=== PATIENT | male | born 1990 | race Hispanic/Latino ===

== ENCOUNTER 2016-09-09 09:41 | Emergency (ER) | payer OTHER ==
[2016-09-09 10:01] VITALS: BP 120/80
--- NOTE | 2016-09-09 10:25 | RADIOLOGY REPORT ---
EXAMINATION: XR KNEE, LEFT CLINICAL INFORMATION: Knee pain COMPARISON: None. TECHNIQUE: 4 views of the left knee. FINDINGS: Osseous alignment is anatomic. Joint spaces are preserved. No acute fracture is seen. 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 No significant effusion is seen. IMPRESSION: No acute findings identified. Chronic appearing fragmentation of the tibial tubercle suggests sequelae of old [place]-Schlatter disease.
--- NOTE | 2016-09-09 12:15 | ED UPPER/LOWER EXTREMITY COMPL ---
History of Present Illness General Chief Complaint: Lower Extremity Problems Stated Complaint: L KNEE PAIN Source: patient Exam Limitations: no limitations Vital Signs & Intake/Output Vital Signs & Intake/Output Vital Signs Date Time Temp Pulse Resp B/P Pulse O2 O2 Flow FiO2 Ox Delivery Rate 09/09 1001 98.0 64 20 120/80 98 Room Air Allergies Coded Allergies: No Known Allergies (09/09/16) Reconcile Medications Naproxen (Naprosyn) 500 MG TABLET 1 TAB PO BID PRN PAIN/INFLAMMATION Triage Note: PT PRESENTS TO ER FOR LEFT KNEE PAIN X 1 WEEK. PT STATES HE HAS NO PMD, PT STATES HE TWISTED HIS KNEE WHILE MOVING AROUND LAST WEEK AND SINCE THE INCIDENT HIS KNEE HAS BEEN BOTHERING HIM. PT DOES NOT RECALL ACTUAL TRAUMATIC EVENT LEADING TO KNEE INJURY. Triage Nurses Notes Reviewed? yes HPI: HERE WITH CO L KNEE PAIN, TWISTED WHILE WALKING DOWN A HILL WHILE INTOXICATED 5 DAYS AGO. WHEN WALKING FEELS PAIN AND POPPING SENSATION IN THE KNEE, NO PREVIOUS INJURY. TX WITH MOTRIN WITH MILD RELIEF. NO OTHER INJURIES. ICE WAS MINIMALLY HELPFUL . Past History Travel History Traveled to [place] past 21 day No Medical History Any Pertinent Medical History? none Neurological: NONE EENT: NONE Cardiovascular: NONE Respiratory: NONE Gastrointestinal: NONE Hepatic: NONE Renal: NONE Musculoskeletal: NONE Psychiatric: NONE Endocrine: NONE Surgical History Surgical History: none Psychosocial History What is your primary language Frisian Tobacco Use: Never used Family History Hx Contributory? No Review of Systems Review of Systems Constitutional: Reports: see HPI. EENTM: Reports: no symptoms. Respiratory: Reports: no symptoms. Cardiovascular: Reports: no symptoms. Gastrointestinal/Abdominal: Reports: no symptoms. Genitourinary: Reports: no symptoms. Musculoskeletal: Reports: see HPI. Skin: Reports: no symptoms. Neurological/Psychological: Reports: no symptoms. Hematologic/Endocrine: Reports: no symptoms. Immunological: Reports: no symptoms. All Other Systems: Reviewed and Negative Physical Exam Physical Exam General Appearance: well developed/nourished Comments: Well-developed well-nourished no apparent distress. HEENT: Atraumatic, extraocular motion intact Neck: Supple, no lymphadenopathy Back: Nontender Respiratory: No respiratory distress Extremities: No edema, full range of motion Neuro: Alert and oriented x3 Psych: Mood affect normal, normal memory normal judgment. Skin: Warm and dry, no rash on exposed skin L KNEE- WITH MILD EFFUSION, MEDIAL JOINT LINE TENDERNESS. Positive Adolfo's test for medial meniscal tear NO LAXITY, no pain with stress, negative anterior drawer and negative Gianna test. FROM. NVI. Progress Differential Diagnosis: arterial insufficiency, cellulitis, CHF, compartment syndrome, contusion, dislocation, DVT, fracture, gout, septic arthritis, sprain, tendon injury Plan of Care: Likely acute medial meniscal tear. Recommend rest ice and elevation Naprosyn and orthopedic follow-up Diagnostic Imaging: Viewed by Me: Radiology Read. Discussed w/RAD: Radiology Read. Radiology Impression: PATIENT: SARAVANAN HALEY PRESENT AGE: 26 PATIENT ACCOUNT NO: [id number] : 88 LOCATION: [facility] ORDERING PHYSICIAN: KARISSA MCGINNIS DO (TBS) SERVICE DATE: 09/09/16 EXAM TYPE: RAD - XRY-KNEE COMPLETE LEFT EXAMINATION: XR KNEE, LEFT CLINICAL INFORMATION: Knee pain COMPARISON: None. TECHNIQUE: 4 views of the left knee. FINDINGS: Osseous alignment is anatomic. Joint spaces are preserved. No acute fracture is seen. 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 No significant effusion is seen. IMPRESSION: No acute findings identified. Chronic appearing fragmentation of the tibial tubercle suggests sequelae of old [place]-Schlatter disease. DICTATED BY: ADELAIDA MAXWELL MD DATE/TIME DICTATED:09/09/161018 HOUSE PARENT:DANN DATE/TIME TRANSCRIBED:09/09/161018 Departure Departure Disposition: HOME OR SELF CARE Condition: Stable Clinical Impression Primary Impression: Acute medial meniscus tear of right knee Qualifiers: Encounter type: initial encounter Qualified Code: S83.241A - Other tear of medial meniscus, current injury, right knee, initial encounter Referrals: PATIENT HAS NO PRIMARY CARE DR (PCP/Family) TRUDI YEE,ALVINA Diaz Additional Instructions: Rest, ice, Naprosyn and Tylenol as needed for pain. follow-up with orthopedist in one to 2 weeks Departure Forms: Customer Survey General Discharge Information Prescriptions: Current Visit Scripts Naproxen (Naprosyn) 1 TAB PO BID PRN PAIN/INFLAMMATION #30 TAB
[2016-09-09] MEDS ORDERED: NAPROSYN500 M1 PO (12:27)
== END 2016-09-09 12:36 ==
LOC: ERH 09:41
DX: S83.411A Sprain of medial collateral ligament of right knee, initial encounter (principal); X58.XXXA Exposure to other specified factors, initial encounter
CPT/HCPCS: 73562-LT

== ENCOUNTER 2017-01-24 07:53 | Emergency (ER) | payer OTHER ==
[~2017-01-24] VITALS: Ht 180.3 cm; Wt 116.6 kg
[~2017-01-24 07:53] MED LIST: NAPROSYN500 M1 PO
[2017-01-24 07:56] VITALS: BP 121/79
--- NOTE | 2017-01-24 08:00 | ED EYE COMPLAINT ---
History of Present Illness General Chief Complaint: Eye Problems Stated Complaint: EYE PROBLEM Source: patient Exam Limitations: no limitations Vital Signs & Intake/Output Vital Signs & Intake/Output Vital Signs Date Time Temp Pulse Resp B/P B/P Pulse O2 O2 Flow FiO2 Mean Ox Delivery Rate 01/24 0756 99.1 78 20 121/79 97 Room Air Allergies Coded Allergies: No Known Allergies (09/09/16) Reconcile Medications Desloratadine (Clarinex) 5 MG TABLET 1 TAB PO DAILY ALLERGIES Fluticasone Propionate (Flonase Allergy Relief) 50 MCG/ACTUATION SPRAY.SUSP 1 SPRAY RJ DAILY PRN RHINITIS Methylprednisolone. (Medrol) 4 MG TAB.DS.PK 1 DP PO AD INFLAMMATION 6 on day 1 then reduce by one tablet daily until gone Olopatadine HCl (Pataday) 0.2 % DROPS 1 GTT OPH DAILY CONJUNCTIVITIS Triage Note: C/O RIGHT EYE SWELLING AND ITCHING SINCE YESTERDAY. STATES HIS WHOLE BODY IS ITCHING ALSO. STATES HE WAS CUTTING BUSHES YESTERDAY AND THINKS HE MAY HAVE COME IN CONTACT WITH POISON CORRIE Triage Nurses Notes Reviewed? yes Onset: Gradual Duration: constant Timing: single episode today Severity: moderate Severity Numbers: 5 HPI: Patient is a 26-year-old male with an unremarkable past medical history presents to emergency room stating that yesterday he was outside all day working in his yard where he had no symptoms that evening however today patient woke up with itchy watery irritating eyes nasal congestion and skin itching sensation. Patient denies any new soaps new detergents. Denies any shortness of breath lips swelling tongue swelling or difficulty breathing or difficulty swallowing. Denies any contact lens wear (ANNE MARINO) Past History Travel History Traveled to [place] past 21 day No Medical History Any Pertinent Medical History? none Neurological: NONE EENT: NONE Cardiovascular: NONE Respiratory: NONE Gastrointestinal: NONE Hepatic: NONE Renal: NONE Musculoskeletal: NONE Psychiatric: NONE Endocrine: NONE Surgical History Surgical History: none Psychosocial History What is your primary language German Tobacco Use: Current Daily Use Daily Tobacco Use Amount/Type: => 5 Cigarettes daily ETOH Use: occasional use Illicit Drug Use: denies illicit drug use Family History Hx Contributory? No (ANNE MARINO) Review of Systems Review of Systems Constitutional: Reports: no symptoms. Eyes: Reports: see HPI, drainage, inflammation. Denies: blindness, blurred vision, foreign body sensation, pain, photophobia, previous injury, vision change, contact lenses. Ear: Reports: no symptoms. Nose: Reports: see HPI, congestion. Mouth: Reports: see HPI. Throat: Reports: no symptoms. Respiratory: Reports: no symptoms. Cardiovascular: Reports: no symptoms. GI: Reports: no symptoms. Genitourinary: Reports: no symptoms. Musculoskeletal: Reports: no symptoms. Skin: Reports: see HPI, rash. Neurological/Psychological: Reports: no symptoms. Hematologic/Endocrine: Reports: no symptoms. Immunologic/Allergic: Reports: no symptoms. All Other Systems: Reviewed and Negative (ANNE MARINO) Physical Exam General Appearance: well developed/nourished, no apparent distress, alert, awake General Inspection: normal inspection Eyelid: normal inspection, everted for exam Conjunctiva/Sclera: normal inspection Cornea: normal inspection, examined w/fluorescein EOM: intact Pupil: normal accommodation, normal pupil, PERRL Anterior Chamber: normal inspection General Inspection: normal inspection Eyelid: normal inspection Conjunctiva/Sclera: normal inspection Cornea: normal inspection, examined w/fluorescein EOM: intact Pupil: normal accommodation, normal pupil, PERRL Anterior Chamber: normal inspection Physical Exam Comments: Well-developed well-nourished person in no acute distress HEENT: extraocular motion intact, no nystagmus. Pupils equally round and reactive to light and accommodation. Nose is atraumatic. External auditory canal and Tympanic membranes clear. Pharynx normal. No swelling or edema. Neck: Supple, no lymphadenopathy, normal range of motion without pain or tenderness Back: Nontender, no CVA tenderness. Cardiovascular: Regular rate and rhythms no murmurs rubs or gallops, normal JVP Respiratory: Chest nontender. No respiratory distress.breath sounds clear to auscultation bilaterally Abdomen: Soft, nontender nondistended, no appreciable organomegaly. Normal bowel sounds. No ascites Extremity: No edema, no calf tenderness to palpation, normal and equal pulses. Neuro: Alert oriented x3, motor sensory normal, Skin: No appreciable rash on exposed skin, skin is warm and dry. Psych: Mood and affect is normal, memory and judgment is normal. (ANNE MARINO) Progress Differential Diagnosis: corneal abrasion, corneal foreign body, conjunctivitis, detached retina, glaucoma, globe rupture, retinal art./v. occlusion, POISON CORRIE Plan of Care: On examination there was no concerns of bacterial conjunctivitis staining was performed showing no concerns of corneal abrasion. No overt findings on skin exam of rash or poison corrie. No concerns of anaphylaxis or angioedema Due to history of present illness and exam findings patient is likely to have allergic conjunctivitis and rhinitis. Patient was given copy of [facility] practice for follow-up to establish a primary care doctor (ANNE MARINO) Departure Departure Disposition: HOME OR SELF CARE Condition: Stable Clinical Impression Primary Impression: Pollen allergies Secondary Impressions: Allergic conjunctivitis, Allergic rhinitis Referrals: PATIENT HAS NO PRIMARY CARE DR (PCP/Family) Additional Instructions: As discussed you have given a list of [facility] practice contact information to establish a doctor, please call today to make an appointment to establish a primary care doctor. Begin the prescription of Medrol Dosepak, Flonase, Clarinex, and Pataday for your symptoms. Prescriptions waiting at [facility] pharmacy. If symptoms worsen return to emergency room. Departure Forms: Customer Survey General Discharge Information Prescriptions: Current Visit Scripts Olopatadine HCl (Pataday) 1 GTT OPH DAILY #1 BOT Desloratadine (Clarinex) 1 TAB PO DAILY #30 TAB Methylprednisolone. (Medrol) 1 DP PO AD #1 DP 6 on day 1 then reduce by one tablet daily until gone Fluticasone Propionate (Flonase Allergy Relief) 1 SPRAY RJ DAILY PRN RHINITIS #1 BOT (ANNE MARINO) PA/ONLINE AFFILIATE MARKETING MANAGER Co-Sign Statement Statement: ED Attending supervision documentation- [] I saw and evaluated the patient. I have also reviewed all the pertinent lab results and diagnostic results. I agree with the findings and the plan of care as documented in the PA's/ONLINE AFFILIATE MARKETING MANAGER's documentation. [X] I have reviewed the ED Record and agree with the PA's/ONLINE AFFILIATE MARKETING MANAGER's documentation. [] Additions or exceptions (if any) to the PAs/ONLINE AFFILIATE MARKETING MANAGER's note and plan are summarized below: [] (ROBERT YEE,MELANIE)
[2017-01-24] MEDS ORDERED: FLONASE ALLERG9.9 ML NAS (08:16)
[2017-01-24] MEDS ORDERED: CLARINEX5 M1 PO (08:16)
[2017-01-24] MEDS ORDERED: MEDROL4 M2 PO (08:16)
[2017-01-24] MEDS ORDERED: PATADAY2.5 ML OPH (08:16)
== END 2017-01-24 08:20 ==
LOC: ERH 07:53
DX: J30.1 Allergic rhinitis due to pollen (principal); H10.10 Acute atopic conjunctivitis, unspecified eye; Z72.0 Tobacco use

== ENCOUNTER 2018-01-29 00:10 | Emergency (ER) | payer OTHER ==
[~2018-01-29] VITALS: Ht 180.3 cm; Wt 90.7 kg
[~2018-01-29 00:10] MED LIST changes: +CLARINEX5 M1 PO; +FLONASE ALLERG9.9 ML NAS; +MEDROL4 M2 PO; +PATADAY2.5 ML OPH; +PERCOCET 5-3251 EACH PO
[2018-01-29 00:23] VITALS: BP 133/83
[2018-01-29] MEDS ORDERED: PERCOCET 5-3251 EACH PO (00:34)
--- NOTE | 2018-01-29 00:35 | ED THROAT/DENTAL COMPLAINT ---
History of Present Illness General Chief Complaint: Sore Throat, Dental Pain Stated Complaint: TOOTH PAIN Source: patient, family, old records Exam Limitations: no limitations Vital Signs & Intake/Output Vital Signs & Intake/Output Vital Signs Date Time Temp Pulse Resp B/P B/P Pulse O2 O2 Flow FiO2 Mean Ox Delivery Rate 01/29 0026 97 Room Air 01/29 0023 98.1 69 18 133/83 97 Room Air Allergies Coded Allergies: No Known Allergies (09/09/16) Reconcile Medications Oxycodone HCl/Acetaminophen (Percocet 5-325 MG Tablet) 5 MG-325 MG TABLET 1-2 TAB PO Q6P PRN PAIN Triage Note: PT FROM HOME C/O TOOTH ACHE BOTTOM RIGHT BACK TOOTH SINCE 2200. PT STATES 1 MONTH PRIOR HE WENT TO THE DENTIST TO HAVE A FILLING PLACED AND NOW IT IS MISSING. PT STATES HE AWOKE TONIGHT AT 2200 WITH THE TOOTH PAIN "20/10" PER PT AND TOOK AN 800MG MOTRIN AT HOME. PT IN TRIAGE SHAKING LEG FROM "PAIN". VSS. Triage Nurses Notes Reviewed? yes HPI: Patient has a known cavity in his right lower back tooth. Has dentist said wanted to take care of it but he was doing work on the left side of his mouth and the patient wanted to wait until the tooth started bothering him. Patient states that 10:00 this evening the pain increased to 10 out of 10. The pain is throbbing in nature. There is no radiation. The pain is worsened with cold liquids. Patient denies any fevers or chills. There is no swelling. Past History Travel History Traveled to [place] past 21 day No Medical History Any Pertinent Medical History? none Neurological: NONE EENT: NONE Cardiovascular: NONE Respiratory: NONE Gastrointestinal: NONE Hepatic: NONE Renal: NONE Musculoskeletal: NONE Psychiatric: NONE Endocrine: NONE Surgical History Surgical History: none Psychosocial History What is your primary language Guamanian Tobacco Use: Current Daily Use Daily Tobacco Use Amount/Type: => 5 Cigarettes daily ETOH Use: occasional use Illicit Drug Use: denies illicit drug use Family History Hx Contributory? No Review of Systems Review of Systems Constitutional: Reports: no symptoms. EENTM: Reports: see HPI, tooth pain. Respiratory: Reports: no symptoms. Cardiovascular: Reports: no symptoms. Neurological/Psychological: Reports: no symptoms. Physical Exam Physical Exam General Appearance: well developed/nourished, alert, awake, anxious, moderate distress Head: atraumatic Eyes: Bilateral: PERRL, EOMI. Mouth/Throat: dental tenderness Neck: normal inspection, supple, no lad Neurologic/Psych: no motor/sensory deficits, awake, alert, oriented x 3, normal gait, normal mood/affect Core Measures ACS in differential dx? No Sepsis Present: No Sepsis Focused Exam Completed? No Progress Differential Diagnosis: carious tooth Plan of Care: Current Medications Sig/Florentino Start time Last Medication Dose Stop Time Status Admin Oxycodone/ 1 TAB ONCE ONE 01/295 UNVr Acetaminophen 01/296 (Percocet) Departure Departure Disposition: HOME OR SELF CARE Condition: Stable Clinical Impression Primary Impression: Toothache Referrals: Patient Has No Primary Care Dr (PCP/Family) Additional Instructions: FOLLOW UPWITH YOUR DENTIST ON TUESDAY TAKE PERCOCET NEEDED FOR PAIN RETURN IF SYMPTOMS WORSEN OR FOR ANY CONCERNS Departure Forms: Customer Survey General Discharge Information Prescriptions: Current Visit Scripts Oxycodone HCl/Acetaminophen (Percocet 5-325 MG Tablet) 1-2 TAB PO Q6P PRN PAIN #20 TAB
== END 2018-01-29 00:40 ==
LOC: ERH 00:10
DX: K08.89 Other specified disorders of teeth and supporting structures (principal)